=== PATIENT | male | born 1985 | race African-American/Black ===

== ENCOUNTER 2019-03-02 10:54 | Emergency (ER) | payer SELFPAY ==
[~2019-03-02] VITALS: Ht 190.5 cm; Wt 79.0 kg
[2019-03-02 12:25] VITALS: BP 105/78
== END 2019-03-02 13:24 | disposition home or self-care (01) ==
LOC: ER 13:22
DX: S01.401D Unspecified open wound of right cheek and temporomandibular area, subsequent encounter (principal); F17.200 Nicotine dependence, unspecified, uncomplicated; W34.09XD Accidental discharge from other specified firearms, subsequent encounter
CPT/HCPCS: 99281

== ENCOUNTER 2019-03-06 16:58 | Emergency (ER) | payer SELFPAY ==
[~2019-03-06] VITALS: Ht 190.5 cm; Wt 79.0 kg
[2019-03-06 19:28] VITALS: BP 115/65
== END 2019-03-06 19:29 | disposition home or self-care (01) ==
LOC: ER 16:58
DX: Z48.02 Encounter for removal of sutures (principal)
CPT/HCPCS: 99281

== ENCOUNTER 2022-06-20 18:38 | Emergency (ER) | payer MEDICAID ==
[~2022-06-20] VITALS: Ht 188 cm; Wt 91.0 kg
[2022-06-20] MEDS ORDERED: CLIN-194 MT (21:00)
[2022-06-20] MEDS ORDERED: IBUP-2028 MT (21:00)
[2022-06-20] MEDS ORDERED: LIDOCAINE HCL/PF 1% 10 MG/ML 5ML VIAL INFIL ONE (21:00)
[2022-06-20] MEDS ORDERED: LIDOCAINE HCL/EPINEPHRINE 1%-EPI 1:100,000 20 ML VIAL INFIL ONE (21:00)
[2022-06-20] MEDS: LIDOCAINE HCL 1% 10 MG/ML 10ML VIAL INJ NR ×2 (21:00→21:12)
[2022-06-20] MEDS ORDERED: DOCU-138 MT (21:00)
[2022-06-20] MEDS ORDERED: IBUPROFEN 400MG TABLET PO ONE (21:00)
[2022-06-20 21:49] VITALS: BP 112/75
== END 2022-06-20 21:59 | disposition home or self-care (01) ==
LOC: ER 18:46
DX: L02.31 Cutaneous abscess of buttock (principal)
CPT/HCPCS: 10060; 99283; J3490; Z7610

== ENCOUNTER 2022-06-23 23:14 | Emergency (ER) | payer MEDICAID ==
[~2022-06-23] VITALS: Ht 190.5 cm; Wt 89.0 kg
[~2022-06-23 23:14] MED LIST: CLIN-194 MT; DOCU-138 MT; IBUP-2028 MT
[2022-06-23 23:39] VITALS: BP 104/74
== END 2022-06-24 01:33 | disposition home or self-care (01) ==
LOC: ER 23:14
DX: Z48.00 Encounter for change or removal of nonsurgical wound dressing (principal)
CPT/HCPCS: 99281

== ENCOUNTER 2022-08-16 21:19 | Emergency (ER) | payer MEDICAID ==
[~2022-08-16] VITALS: Ht 190.5 cm; Wt 90.3 kg
[2022-08-16 21:31] VITALS: BP 151/92
== END 2022-08-16 23:50 | disposition home or self-care (01) ==
LOC: ER 21:42
DX: G47.8 Other sleep disorders (principal); F17.210 Nicotine dependence, cigarettes, uncomplicated; Z88.2 Allergy status to sulfonamides
CPT/HCPCS: 99281

== ENCOUNTER 2022-10-26 23:54 | Emergency (ER) | payer MEDICAID ==
[~2022-10-26] VITALS: Ht 190.5 cm; Wt 87.0 kg
[2022-10-27 01:55] VITALS: BP 132/75
== END 2022-10-27 01:57 | disposition home or self-care (01) ==
LOC: ER 23:54
DX: R10.9 Unspecified abdominal pain (principal); Z88.2 Allergy status to sulfonamides
CPT/HCPCS: 99281

== ENCOUNTER 2022-11-02 22:52 | Emergency (ER) | payer MEDICAID ==
[~2022-11-02] VITALS: Ht 190.5 cm; Wt 88.0 kg
[2022-11-02 22:58] VITALS: BP 107/71
== END 2022-11-02 23:59 | disposition home or self-care (01) ==
LOC: ER 22:52
DX: R51.9 Headache, unspecified (principal); Z88.2 Allergy status to sulfonamides
CPT/HCPCS: 99281

== ENCOUNTER 2022-12-07 23:15 | Emergency (ER) | payer MEDICAID ==
[~2022-12-07] VITALS: Ht 190.5 cm; Wt 86.0 kg
[2022-12-07 23:27] VITALS: BP 114/76
[2022-12-08] MEDS ORDERED: MUPI1OIN4 TP ×2 (01:07)
== END 2022-12-08 01:38 | disposition home or self-care (01) ==
LOC: ER 23:15
DX: L73.9 Follicular disorder, unspecified (principal); Z88.2 Allergy status to sulfonamides
CPT/HCPCS: 99282

== ENCOUNTER 2023-04-25 16:38 | Emergency (ER) | payer MEDICAID ==
[~2023-04-25] VITALS: Ht 190.5 cm; Wt 87.0 kg
[~2023-04-25 16:38] MED LIST changes: +MUPI1OIN4 TP
[2023-04-25 16:50] VITALS: BP 109/74; RESP 18; TEMP 98.9; O2SAT 100
[2023-04-25 16:51] VITALS: PULSE 102
== END 2023-04-25 18:37 | disposition home or self-care (01) ==
LOC: ER 16:38
DX: R51.9 Headache, unspecified (principal); Z88.2 Allergy status to sulfonamides
CPT/HCPCS: 99281

== ENCOUNTER 2023-06-02 07:19 | Emergency (ER) | payer MEDICAID ==
[~2023-06-02] VITALS: Ht 190.5 cm; Wt 86.2 kg
[2023-06-02 07:32] VITALS: O2SAT 100
[2023-06-02] MEDS ORDERED: LIDOCAINE HCL/PF 1% 10 MG/ML 5ML VIAL INFIL ONE (08:00)
[2023-06-02] MEDS ORDERED: IBUP-2028 PO (08:33)
[2023-06-02 09:07] VITALS: BP 119/81; PULSE 72; RESP 14; TEMP 98.6
== END 2023-06-02 09:20 | disposition home or self-care (01) ==
LOC: ER 07:29
DX: L02.415 Cutaneous abscess of right lower limb (principal); Z88.2 Allergy status to sulfonamides
CPT/HCPCS: 76604; 10060; 99284; J3490; Z7610 ×5

== ENCOUNTER 2025-02-18 23:46 | Emergency (ER) | payer MEDICAID ==
[~2025-02-18] VITALS: Ht 190.5 cm; Wt 88.0 kg
[~2025-02-18 23:46] MED LIST changes: +IBUP-2028 PO
[2025-02-19 00:09] VITALS: O2SAT 100
[2025-02-19] MEDS: BACITRACIN ZINC OINT UDPKT TOP ONE (01:15)
[2025-02-19] MEDS: LIDOCAINE HCL/EPINEPHRINE 1%-EPI 1:100,000 20ML VIAL INFIL ONE (01:15)
[2025-02-19] MEDS: PIPERACILLIN/TAZO 3.375G/50ML 50 ML IV ONE (01:25)
[2025-02-19] MEDS: KETOROLAC 15MG/ML VIAL IV ONE (01:26)
[2025-02-19] MEDS: SODIUM CHLORIDE 0.9% (SEPSIS BOLUS) IV ONE (01:27)
[2025-02-19 01:41] LABS: BASOPHILS % 0.3 % (0.0-2.0); EOSINOPHILS % 0.1 % (0.0-5.0); HEMATOCRIT. 28.1 % (42.0-52.0); HEMOGLOBIN. 9.9 g/dL (14.0-18.0); LYMPHOCYTES % 21.2 % (20.0-50.0); MEAN PLATELET VOLUME 7.6 fl (7.4-10.4); MONOCYTES % 7.6 % (2.0-8.0); NEUTROPHILS % 70.8 % (40.0-76.0); PLATELET 226 x1000/uL (130-400); RED BLOOD CELL COUNT 2.92 mill/uL (4.7-6.1); RED CELL DISTRIBUTION WIDTH 13.5 % (11.6-14.6)
[2025-02-19 01:48] LABS: INR 1.2
[2025-02-19 01:52] LABS: CREATININE 0.9 mg/dL (0.6-1.3); ETHANOL BLOOD < 10 mg/dL (<10); TROPONIN I HIGH SENSITIVITY < 4 ng/L (3.0-53); UREA NITROGEN BLOOD 8 mg/dL (9-23)
[2025-02-19 01:54] LABS: ASPARTATE AMINOTRANSFERASE 14 IU/L (<34); BILIRUBIN DIRECT 0.3 mg/dL (<=3.0); BILIRUBIN TOTAL 0.8 mg/dL (0.1-1.0); PROTEIN TOTAL 8.8 g/dL (6.0-8.3)
[2025-02-19] MEDS: VANCOMYCIN 1G PREMIX 200 ML IV ONE (02:11)
[2025-02-19] MEDS ORDERED: DOXY-461 MT (03:39)
[2025-02-19] MEDS ORDERED: IBUP-2029 MT (03:39)
[2025-02-19] MEDS ORDERED: CEPH500T MT (03:39)
[2025-02-19 04:29] VITALS: BP 119/74; PULSE 77; RESP 12; TEMP 38; O2SAT 100
== END 2025-02-19 04:38 | disposition home or self-care (01) ==
LOC: ER 23:46
DX: L02.31 Cutaneous abscess of buttock (principal); F17.210 Nicotine dependence, cigarettes, uncomplicated; Z79.1 Long term (current) use of non-steroidal anti-inflammatories (NSAID); Z88.2 Allergy status to sulfonamides; Z79.899 Other long term (current) drug therapy
CPT/HCPCS: 10060; 99285; 80076; 80048; 80320; 83605; 85025; 85610; 87040; 87076; 87070; 87186; 87205; 84484; 87077; 36415; 84145; 71045; 93005; 96367; 96365; 96366; 96375; J1885; J2004; J2543; J3373; J7030; Z7610; G0480